=== PATIENT | male | born 2000 | race Caucasian/White ===

== ENCOUNTER 2025-07-03 07:54 | Day surgery (SDC) | payer BC ==
[~2025-07-03 07:54] MED LIST: Sodium Chloride 0.9% 10 ML Syringe FLUSH PRN
[2025-07-03] MEDS ORDERED: Midazolam 1 MG/ML 2 ML SDV IV ONE (07:55)
[2025-07-03] MEDS ORDERED: Propofol 200 MG/20 ML SDV IV ONE (07:55)
[2025-07-03] MEDS: Lactated Ringers 1,000 ML IV SCH (08:36)
[2025-07-04 23:06] LABS: ADENOVIRUS 40/41 PCR Not Detected; ASTROVIRUS PCR Not Detected; CRYPTOSPORIDIUM PCR Not Detected; CYCLOSPORA CAYETANENSIS PCR Not Detected; ENTAMOEBA HISTOLYTICA PCR Not Detected; ENTEROAGGREGATIVE E. COLI PCR Not Detected; ENTEROPATHOGENIC E. COLI PCR Not Detected; ENTEROTOXIGENIC E. COLI PCR Not Detected; GIARDIA LAMBLIA PCR Not Detected; NOROVIRUS GI/GII PCR Not Detected; PLESIOMONAS SHIGELLOIDES PCR Not Detected; ROTAVIRUS A PCR Not Detected; SALMONELLA PCR Not Detected; SAPOVIRUS PCR Not Detected; SHIG/ENTEROINVASIVE E COLI PCR Not Detected; SHIGA TOXIN-PRODUC E. COLI PCR Not Detected; VIBRIO CHOLERAE PCR Not Detected; VIBRIO PCR Not Detected; YERSINIA ENTEROCOLITICA PCR Not Detected
[2025-07-05 00:28] LABS: LACTOFERRIN,FECAL BY ELISA Negative (Negative)
== END 2025-07-03 11:34 | disposition home or self-care (01) ==
LOC: FB.SDS 07:54
PROVIDERS: ATTEND Surgery
DX: K52.9 Noninfective gastroenteritis and colitis, unspecified (principal); R63.4 Abnormal weight loss; F17.210 Nicotine dependence, cigarettes, uncomplicated
CPT/HCPCS: 00811; 83630; 87507; 88305; A9270-GY; J2250; J2704; J7120